=== PATIENT | male | born 1995 | race Caucasian/White ===

== ENCOUNTER 2018-03-22 18:13 | Emergency (ER) | payer SELFPAY ==
[2018-03-22 18:23] VITALS: BP 148/80
--- NOTE | 2018-03-22 18:25 | UC ---
Complaint Male HPI - HPI Summary HPI Summary: 22 yo male presents requesting STD testing. He tells me that his partner has had blood in her urine with UTI symptoms, but has had multiple negative urine cultures. She is in the process of having a further workup, but pt became concerned and wanted to rule out that he gave her "something" - as in an STD. He last had sexual intercourse with a different partner over a year ago and was tested at that time and was negative. He currently has no symptoms. - History of Current Complaint Chief Complaint: UCGeneralIllness Stated Complaint: STD TESTING Time Seen by Provider: 03/22/18 18:23 Hx Obtained From: Patient Onset/Duration: Sudden Onset Severity Currently: None Pain Intensity: 0 - Allergies/Home Medications Allergies/Adverse Reactions: Allergies Allergy/AdvReac Type Severity Reaction Status Date / Time No Known Allergies Allergy Verified 03/22/18 18:23 Home Medications: Home Medications NK [No Home Medications Reported] 03/22/18 [History Confirmed 03/22/18] PMH/Surg Hx/FS Hx/Imm Hx - Additional Past Medical History Additional PMH: None - Surgical History Surgical History: None Surgery Procedure, Year, and Place: NONE - Family History Known Family History: Positive: None - Social History Occupation: Student Lives: Dormitory/Roommates Alcohol Use: Weekly Substance Use Type: None Smoking Status (MU): Current Some Day Smoker Type: eCigarettes Amount Used/How Often: 3x per week Review of Systems All Other Systems Reviewed And Are Negative: Yes Constitutional: Positive: Negative Skin: Positive: Negative Respiratory: Positive: Negative Cardiovascular: Positive: Negative Gastrointestinal: Positive: Negative Genitourinary: Positive: Negative Neurological: Positive: Negative Psychological: Positive: Negative Physical Exam - Summary Physical Exam Summary: GENERAL: NAD. WDWN. No pain distress. NECK: Supple. Nontender. No lymphadenopathy. CHEST: No accessory muscle use. Breathing comfortably and in no distress. CV: Pulses intact. Cap refill <2seconds NEURO: Alert. PSYCH: Age appropriate behavior. Triage Information Reviewed: Yes Vital Signs: Initial Vital Signs Temp 98.8 F 03/22/18 18:16 Pulse 81 03/22/18 18:16 Resp 14 03/22/18 18:16 BP 148/80 03/22/18 18:16 Pulse Ox 100 03/22/18 18:16 Vital Signs Reviewed: Yes Complaint Male Course/Dx - Course Course Of Treatment: Pt declined exam as he has no symptoms. He only wishes to be tested for GC/C at this time. A urine sample was obtained and will be sent to the lab for testing. No treatment at this time as my suspicion that he has GC/C is very low. Pt advised to call in a few days to ask about urine results. - Differential Dx/Diagnosis Provider Diagnoses: STD testing Discharge - Sign-Out/Discharge Documenting (check all that apply): Patient Departure All imaging exams completed and their final reports reviewed: No Studies - Discharge Plan Condition: Stable Disposition: HOME Patient Education Materials: Chlamydia (ED), Safe Sex (ED), Gonorrhea (ED) Referrals: No Primary Care Phys,NOPCP [Primary Care Provider] - Additional Instructions: If you develop a fever, shortness of breath, chest pain, new or worsening symptoms - please call your PCP or go to the ED. Your blood pressure was high at todays visit. Please see your primary provider within 4 weeks for recheck and re-evaluation. Please call in 3-4 days to ask about your lab results - Billing Disposition and Condition Condition: STABLE Disposition: Home
--- NOTE | 2018-03-25 07:35 | ED ---
Progress - Progress Note Progress Note: Labs review today: Urine GC/chlamydia is negative No change in plan. Course/Dx - Course Course Of Treatment: Pt declined exam as he has no symptoms. He only wishes to be tested for GC/C at this time. A urine sample was obtained and will be sent to the lab for testing. No treatment at this time as my suspicion that he has GC/C is very low. Pt advised to call in a few days to ask about urine results. Discharge - Sign-Out/Discharge Documenting (check all that apply): Post-Discharge Follow Up All imaging exams completed and their final reports reviewed: No Studies - Discharge Plan Condition: Stable Disposition: HOME Patient Education Materials: Chlamydia (ED), Safe Sex (ED), Gonorrhea (ED) Referrals: No Primary Care Phys,NOPCP [Primary Care Provider] - Additional Instructions: If you develop a fever, shortness of breath, chest pain, new or worsening symptoms - please call your PCP or go to the ED. Your blood pressure was high at todays visit. Please see your primary provider within 4 weeks for recheck and re-evaluation. Please call in 3-4 days to ask about your lab results - Billing Disposition and Condition Condition: STABLE Disposition: Home
== END 2018-03-22 18:37 | disposition home or self-care (01) ==
LOC: UCEAST 18:13
DX: Z11.3 Encounter for screening for infections with a predominantly sexual mode of transmission (principal); F17.210 Nicotine dependence, cigarettes, uncomplicated
CPT/HCPCS: 87491; 87591; 99211; G0463